=== PATIENT | male | born 1965 | race Caucasian/White ===

== ENCOUNTER 2018-08-25 13:59 | Observation (INO) | payer OTHER ==
[~2018-08-25] VITALS: Ht 172.7 cm; Wt 93.8 kg
[~2018-08-25 13:59] MED LIST: ALEVE; AUGMENTIN; DARVOCET A500 51 TAB PO
[2018-08-25] MEDS ORDERED: ASPIRIN E.C. 8181 MG PO (14:12)
[2018-08-25] MEDS ORDERED: DULCOLAX STOOL100 MG PO (14:13)
[2018-08-25] MEDS ORDERED: EPA FISH OIL1 SGL PO (14:13)
[2018-08-25 14:36] LABS: BASO % 0.4 % (0.0-2.0); EOS # 0.1 (0.0-0.7); EOS % 0.9 % (0-4.0); GRAN # 7.9 (1.4-6.5); GRAN % 74.7 % (42.2-75.2); HEMATOCRIT 45.6 % (42.0-52.0); HEMOGLOBIN 15.3 g/dl (13.5-18.0); LYMPH # 1.9 (1.2-3.4); LYMPH % 18.4 % (20.0-51.0); MEAN CELL VOLUME 89 fl (80.0-100.0); MEAN CORPUSCULAR HEMOGLOBIN 30 pg (27.0-31.0); MEAN CORPUSCULAR HGB CONC 34 g/dl (33.0-37.0); MEAN PLATELET VOLUME 10.9 fl (7.4-10.4); MONO # 0.6 (0.1-0.6); MONO % 5.2 % (1.7-9.3); PLATELET COUNT 269 K/mm3 (130-400); RED BLOOD COUNT 5.15 M/mm3 (4.20-5.60); REDCELL DISTRIBUTION WIDTH-CV 12.7 % (11.5-14.5)
[2018-08-25 14:39] LABS: PROTHROMBIN TIME 11.4 SECONDS (9.7-12.8)
[2018-08-25 14:45] LABS: ALANINE AMINOTRANSFERASE 55 U/L (21-72); ALBUMIN 4.4 gm/dL (3.5-5.0); ALKALINE PHOSPHATASE 89 U/L (50-136); ANION GAP 10 mmol/L (7-16); AST,SGOT 47 U/L (15-37); BILIRUBIN,TOTAL 0.5 mg/dL (0.0-1.0); BLOOD UREA NITROGEN 15 mg/dL (9-20); CALCIUM 9.3 mg/dL (8.4-10.2); CARBON DIOXIDE 25 mmol/L (22-30); CHLORIDE 102 mmol/L (98-107); CREATININE, serum 0.92 mg/dL (0.66-1.25); GLUCOSE 222 mg/dL (74-106); LIPASE 335 U/L (23-300); POTASSIUM 4.5 mmol/L (3.4-5.0); SODIUM 137 mmol/L (137-145); TOTAL PROTEIN 7.8 gm/dL (6.4-8.2)
[2018-08-25 14:59] LABS: TROPONIN-I < 0.012 ng/mL (0.000-0.035)
[2018-08-25 17:40] VITALS: BP 160/74; PULSE 80; TEMP 98.8
--- NOTE | 2018-08-25 18:32 | NUR ---
Assessment completed, alert/oriented, vital signs stable, continues to report 10/10 chest pain desptie receiving multiple doses of Morphine/Dialaudid/Toradol/Nitro, heart RRR/ Sinus on tele, distal pulses are palpable, denies and SOA or resp.difficulty/ and lungs CTA, his Lipase was elevated but denies abd tenderness or N/V, tolerting PO intake well, patient is a inmate at [facility] custodial/ DOC, officer present in the room and [facility], I have notified hospitalist of his arrival to the floor
[2018-08-25 20:35] VITALS: BP 140/59; PULSE 73; TEMP 97.5
[2018-08-25 23:27] VITALS: BP 135/60; PULSE 73; TEMP 97.7
[2018-08-26] VITALS (11 sets, daily range): BP systolic 107–150; BP diastolic 48–87; PULSE 70–108; TEMP 97–98.2
--- NOTE | 2018-08-26 05:17 | NUR ---
PT HAS REMAINED HAVING PAIN THROUGHOUT NOC PAIN WAS TO UPPER EPIGASTRIC AREA/ CHEST. PT STATED THAT NO MEDICATION IS HELPING TO RELIEVE PAIN. MONITORING BLOOD SUGARS PER ORDERS. COOPERATIVE WITH CARES. VITALS REMAIN WNL. NO OTHER ISSUES OR CONSERNS VOICED
[2018-08-26 06:16] LABS: BASO % 0.3 % (0.0-2.0); EOS # 0.2 (0.0-0.7); EOS % 1.6 % (0-4.0); GRAN # 6.3 (1.4-6.5); GRAN % 67.9 % (42.2-75.2); HEMATOCRIT 40.3 % (42.0-52.0); HEMOGLOBIN 13.6 g/dl (13.5-18.0); MEAN CELL VOLUME 90 fl (80.0-100.0); MEAN CORPUSCULAR HEMOGLOBIN 30 pg (27.0-31.0); MEAN CORPUSCULAR HGB CONC 34 g/dl (33.0-37.0); MEAN PLATELET VOLUME 11.1 fl (7.4-10.4); MONO # 0.7 (0.1-0.6); MONO % 7.9 % (1.7-9.3); PLATELET COUNT 207 K/mm3 (130-400); RED BLOOD COUNT 4.49 M/mm3 (4.20-5.60); REDCELL DISTRIBUTION WIDTH-CV 12.8 % (11.5-14.5)
[2018-08-26 06:35] LABS: ALANINE AMINOTRANSFERASE 116 U/L (21-72); ALBUMIN 3.8 gm/dL (3.5-5.0); ALKALINE PHOSPHATASE 84 U/L (50-136); ANION GAP 8 mmol/L (7-16); AST,SGOT 81 U/L (15-37); BILIRUBIN,TOTAL 0.5 mg/dL (0.0-1.0); BLOOD UREA NITROGEN 14 mg/dL (9-20); CALCIUM 8.5 mg/dL (8.4-10.2); CARBON DIOXIDE 26 mmol/L (22-30); CHLORIDE 103 mmol/L (98-107); CHOLESTEROL 217 mg/dL (120-200); CHOLESTEROL RISK RATIO 7.4; CREATININE, serum 0.95 mg/dL (0.66-1.25); GLUCOSE 146 mg/dL (74-106); HDL CHOLESTEROL 29 mg/dL; LDL CHOLESTEROL 117 mg/dL; SODIUM 136 mmol/L (137-145); TOTAL PROTEIN 6.7 gm/dL (6.4-8.2); TRIGLYCERIDE 355 mg/dL
[2018-08-26 06:43] LABS: TROPONIN-I < 0.012 ng/mL (0.000-0.035)
--- NOTE | 2018-08-26 08:32 | NUR ---
PT IN BED WITH HOB ELEVATED TO 45 DEGREE ANGLE. PT HAS C/O CHEST PAIN IN CENTER OF CHEST. PT DISCRIBES IT CONSTANT AND RELENTLESS AND HE CANNOT LAY FLAT OR STILL WITH NO RELIEVE AND HE RATES IT AT 10/10. ALSO THAT DILAUDID TAKES EGDE OFF BUT ONLY LAST ABOUT AN HOUR. PT HAS GAURD BY SIDE AND NO NEEDS AT THIS TIME.
--- NOTE | 2018-08-26 11:52 | NUR ---
Initial visit; Patient thanked Hydraulic Elevator Constructor for looking in on him and wishing him well. He requested that Hydraulic Elevator Constructor keep him in her prayers.
--- NOTE | 2018-08-26 15:24 | NUR ---
SW unable to meet with patient but patient was not in his room.
--- NOTE | 2018-08-26 17:12 | NUR ---
PT HAS BEEN IN ROOM MOST OF DAY WITH GUARD. PT'S PAIN HAS NOT BEEN RELIEVED. PT ADVISES THAT HIS CHEST PAIN IS STILL AT A 10/10 AND CONSTANT. PT WENT DOWN TO DO A LEXISCAN AT 1415 THIS AFTERNOON AND ARRIVED BACK AT 1545. RECEIVED CALL THAT LEXISCAN WAS CLEAN AND THAT REPORT WILL BE PUT IN TOMORROW. DIET RESUMED AND PT CALLED TO ORDER DINNER. PT WAS ADVISED OF THE INSULIN THAT WAS ORDER WITH SLIDING SCALE. PT IN BED WITH HOB AT 45 DEGREE ANGLE AND CALL LIGHT WITHIN REACH.
--- NOTE | 2018-08-26 21:00 | NUR ---
PT STATED THIS HS THAT THE TORADOL AND DILAUDID COMBO HAD HELED EASE HIS PAIN MORE THEN THE NORCO. PT STATED THE 2TABS OR NORCO HAD ONLY HELPED SOME. PT BLOOD SUGAR THIS HS WAS 210, ACCOURDING TO SLIDING SCALE WAS TO TAKE PT 2UNITS OF INSULIN. PT REFUSED INSULIN. STATED THAT HE HASNT EVER NEEDED INSULIN AND HE DIDNT WANT TO START TAKING IT.
[2018-08-27 01:00] VITALS: BP 121/66; PULSE 72; TEMP 98.1
--- NOTE | 2018-08-27 03:00 | NUR ---
PT STATED THIS NOC THAT HE WAS ABLE TO GET ABOUT AN HOUR OF SLEEP AT THIS TIME. PT WAS NEEDING SOME PAIN MEDICAION AT THIS TIME WELL. STATED HE CONTINUES TO HAVE PAIN
[2018-08-27 05:15] VITALS: BP 130/74; PULSE 78; TEMP 98.9
[2018-08-27 05:58] LABS: BASO % 0.3 % (0.0-2.0); EOS # 0.2 (0.0-0.7); EOS % 3.7 % (0-4.0); GRAN # 3.3 (1.4-6.5); GRAN % 57.9 % (42.2-75.2); HEMATOCRIT 44.6 % (42.0-52.0); HEMOGLOBIN 14.4 g/dl (13.5-18.0); LYMPH # 1.7 (1.2-3.4); LYMPH % 28.9 % (20.0-51.0); MEAN CELL VOLUME 92 fl (80.0-100.0); MEAN CORPUSCULAR HEMOGLOBIN 30 pg (27.0-31.0); MEAN CORPUSCULAR HGB CONC 32 g/dl (33.0-37.0); MEAN PLATELET VOLUME 10.8 fl (7.4-10.4); MONO # 0.5 (0.1-0.6); MONO % 8.9 % (1.7-9.3); PLATELET COUNT 198 K/mm3 (130-400); RED BLOOD COUNT 4.85 M/mm3 (4.20-5.60); REDCELL DISTRIBUTION WIDTH-CV 12.9 % (11.5-14.5)
[2018-08-27 06:20] LABS: ALBUMIN 3.9 gm/dL (3.5-5.0); BILIRUBIN,TOTAL 0.4 mg/dL (0.0-1.0); CALCIUM 8.7 mg/dL (8.4-10.2); CREATININE, serum 1.02 mg/dL (0.66-1.25); POTASSIUM 4.5 mmol/L (3.4-5.0)
--- NOTE | 2018-08-27 07:20 | NUR ---
pt continues to c/o pain. stated only was able to get the one hour of sleep during the noc.
[2018-08-27 07:33] VITALS: BP 124/70; PULSE 68; TEMP 97.6
--- NOTE | 2018-08-27 08:43 | NUR ---
Assessment completed, alert/oriented, vital signs stable, continues to report sternal pain 04/10 that is now also moved into his RUQ of his abdomen, I have given Naproxen and [place] as ordered, heart RRR/distal pulses are palapble, lungs CTA/ no reps.difficulty, abdomen is soft and BS+/ reports BM yesterday, denies any Nausea and vomitting, he is eating and drinkin without and issues, [facility] officer in room with him at all times/ patient is getting up to the shower at this time, Hospitalist updated on patients condition and continued pain control issues
[2018-08-27] MEDS ORDERED: PROTONIX 40MG T40 MG PO (09:38)
[2018-08-27] MEDS ORDERED: MOTRIN 200200 MG/TAB PO (09:39)
[2018-08-27] MEDS ORDERED: GLUCOPHAGE500 MG/TAB PO (09:39)
--- NOTE | 2018-08-27 10:06 | NUR ---
SW attended clinical rounding and met with patient to discuss discharge planning. Patient is currently incarcerated at [facility]. The pharmacy they use is [facility]. Patient is discharging back to the detention today. No other dc needs identified.
--- NOTE | 2018-08-27 10:42 | NUR ---
Discharge orders reviewed with patient and [facility] deputy probation officer, new meds/ and scripts sent to [facility] pharmacy, continue all previous meds, IV and tele removed, will follow with Physician / Department of Corrections
== END 2018-08-27 10:44 ==
LOC: COL.ER 13:59 → MEDICAL 16:48
PROVIDERS: Emergency Medicine; Nurse Practitioner; Physician Assistant; ADMIT Hospitalist
DX: R07.89 Other chest pain (principal); E11.65 Type 2 diabetes mellitus with hyperglycemia; R94.5 Abnormal results of liver function studies; E78.5 Hyperlipidemia, unspecified; I34.0 Nonrheumatic mitral (valve) insufficiency; Z79.82 Long term (current) use of aspirin; Z79.84 Long term (current) use of oral hypoglycemic drugs; Z87.891 Personal history of nicotine dependence; Z82.49 Family history of ischemic heart disease and other diseases of the circulatory system; Z88.8 Allergy status to other drugs, medicaments and biological substances
CPT/HCPCS: A9500; C9113; G0378; J1170; J1650; J1885; J2270; J7030; Q9967